=== PATIENT | male | born 1970 | race Caucasian/White ===

== ENCOUNTER 2021-07-26 22:16 | Inpatient (IN) | payer OTHER ==
[~2021-07-26] VITALS: Ht 167.6 cm; Wt 90.7 kg
[2021-07-26] MEDS ORDERED: ASPIRIN 81MG TABLET PO ONE (22:45)
[2021-07-26 23:07] LABS: BASOPHILS % 0.7 % (0.0-2.0); EOSINOPHILS % 2.1 % (0.0-5.0); HEMATOCRIT. 47.9 % (42.0-52.0); HEMOGLOBIN. 16.7 g/dL (14.0-18.0); LYMPHOCYTES % 51.2 % (20.0-50.0); MEAN CORPUSCULAR HEMOGLOBIN 31.2 pg (28.0-32.0); MEAN CORPUSCULAR VOLUME 89.4 fL (80.0-94.0); MEAN PLATELET VOLUME 7.6 fl (7.4-10.4); MONOCYTES % 10.9 % (2.0-8.0); NEUTROPHILS % 35.1 % (40.0-76.0); PLATELET 229 x1000/uL (130-400); RED BLOOD CELL COUNT 5.36 mill/uL (4.7-6.1); RED CELL DISTRIBUTION WIDTH 13.8 % (11.6-14.6)
[2021-07-26 23:14] LABS: CHLORIDE 105 mEq/L (98-107)
[2021-07-27 08:30] VITALS: BP 129/83
[2021-07-27 08:40] VITALS: BP 129/83
[2021-07-27] MEDS ORDERED: CLONIDINE 0.1MG TABLET PO PRN (09:15)
[2021-07-27] MEDS ORDERED: DOCUSATE SODIUM 100MG CAPSULE PO PRN (09:15)
[2021-07-27] MEDS ORDERED: HYDROCODONE/ACETAMINOPHEN 5/325MG TABLET PO PRN (09:15)
[2021-07-27] MEDS ORDERED: MAGNESIUM/ALUMINUM HYDROXIDE/SIMETHICONE 30ML UDC PO PRN (09:15)
[2021-07-27] MEDS ORDERED: ACETAMINOPHEN 325MG TABLET PO PRN (09:15)
[2021-07-27] MEDS ORDERED: ONDANSETRON HCL 4MG/2ML INJ IV PRN (09:15)
[2021-07-27] MEDS ORDERED: NALOXONE HCL 0.4MG/ML VIAL IV PRN (09:30)
[2021-07-27] MEDS ORDERED: ENOXAPARIN 40MG/0.4ML SYR SUBCUT SCH (10:00)
[2021-07-27] MEDS ORDERED: OMEPRAZOLE 20MG CAPSULE EXTENDED RELEASE PO SCH (10:00)
[2021-07-27] MEDS ORDERED: ASPIRIN 81MG EC TABLET PO SCH (10:00)
[2021-07-27 12:00] VITALS: BP 116/65
[2021-07-27 16:00] VITALS: BP 114/68
[2021-07-27] MEDS ORDERED: AMLO2.5T2 MT ×2 (16:51)
[2021-07-27 17:21] VITALS: BP 114/68
== END 2021-07-27 17:51 | disposition home or self-care (01) | DRG 58 ==
LOC: ER 22:16 → 6WST 07-27 00:57 → ENRESERV 07-27 07:14
PROVIDERS: ADMIT Internal Medicine; ATTEND Internal Medicine
DX: R20.2 Paresthesia of skin (principal); I10 Essential (primary) hypertension; R20.0 Anesthesia of skin; Z20.822 Contact with and (suspected) exposure to COVID-19
CPT/HCPCS: 36415; 71045; 80053; 80305; 82962; 83880; 84484; 85025; 87426; 93005; 93306; 99285; J1650